=== PATIENT | female | born 1990 | race African-American/Black ===

== ENCOUNTER 2017-07-12 16:06 | Emergency (ER) | payer MEDICAID ==
[~2017-07-12] VITALS: Ht 167.6 cm; Wt 72.7 kg
[2017-07-12 16:07] VITALS: BP 118/79; PULSE 80; RESP 18; TEMP 98.6; O2SAT 100
[2017-07-12 16:53] LABS: AUTOMATED NEUTROPHIL # 2.6 TH/MM3 (1.8-7.7); BASOPHIL % 0.8 % (0.0-2.0); EOSINOPHIL # 0.1 TH/MM3 (0-0.4); EOSINOPHIL % 1.6 % (0.0-4.0); HEMATOCRIT 32.6 % (35.0-46.0); HEMO FLAGS DIFF FINAL; LYMPH % 31.1 % (9.0-44.0); LYMPHOCYTE # 1.4 TH/MM3 (1.0-4.8); MEAN CELL VOLUME 72.1 FL (80.0-100.0); MEAN CORPUSCULAR HEMOGLOBIN 23.4 PG (27.0-34.0); MEAN CORPUSCULAR HGB CONC 32.4 % (32.0-36.0); MONO % 7.2 % (0.0-8.0); NEUT % 59.3 % (16.0-70.0); PLATELET COUNT 298 TH/MM3 (150-450); RED BLOOD COUNT 4.52 MIL/MM3 (4.00-5.30); RED CELL DISTRIBUTION WIDTH 14.4 % (11.6-17.2); WHITE BLOOD COUNT 4.4 TH/MM3 (4.0-11.0)
[2017-07-12 17:24] LABS: ANION GAP 8 MEQ/L (5-15); BICARBONATE 25.2 MEQ/L (21.0-32.0); BLOOD UREA NITROGEN 3 MG/DL (7-18); CHLORIDE 102 MEQ/L (98-107); GLOMERULAR FILTRATION RATE 144 ML/MIN (>89); POTASSIUM 3.1 MEQ/L (3.5-5.1); SODIUM (NA) 135 MEQ/L (136-145)
[2017-07-12 17:27] LABS: ALCOHOL LESS THAN 3 MG/DL (0-5)
--- NOTE | 2017-07-12 17:36 | PD ---
HPI Chief Complaint: Medical Clearance Time Seen by Provider: 17:29 Travel History International Travel<30 days: No Contact w/Intl Traveler<30days: No Traveled to known affect area: No History of Present Illness HPI Patient is a 27-year-old female who presents to emergency room for medical clearance for [facility]. Patient reports that she is about 6 months , reports that she has no care. Patient reports no abdominal pain, denies any vaginal discharge or bleeding. She reports that she is addicted to drugs, specifically marijuana, alcohol and cocaine. Patient reports that she smokes cocaine - does not use it IV drugs. Patient reports no medical complaints at this time. Patient reports that she last used drugs yesterday, patient only here for medical clearance as she requests detox from [facility] from drugs. Patient denies any chest pain or shortness of breath, no other complaints. PFSH Past Medical History Medical History: Denies Significant Hx ?: LMP: 01/2017 Past Surgical History Surgical History: No Previous Surgery Social History Alcohol Use: Yes (1+ BEER/DAY) Tobacco Use: Yes (PPD) Substance Use: Yes (MARIJUANA) Allergies-Medications (Allergen,Severity, Reaction): Coded Allergies: No Known Allergies (Unverified , 07/12/17) Reported Meds & Prescriptions Reported Meds & Active Scripts Active No Active Prescriptions or Reported Medications Review of Systems General / Constitutional: No: Fever Eyes: No: Visual changes HENT: No: Headaches Cardiovascular: No: Chest Pain or Discomfort Respiratory: No: Shortness of Breath Gastrointestinal: No: Abdominal Pain Genitourinary: No: Dysuria Musculoskeletal: No: Pain Skin: No Rash Neurologic: No: Weakness Psychiatric: Positive: Substance Abuse (marijuana, cocaine, alcohol), No: Depression, Suicidal Ideations, Homicidal Ideation Endocrine: No: Polydipsia Hematologic/Lymphatic: No: Easy Bruising Physical Exam Narrative GENERAL: No acute distress, nontoxic SKIN: Focused skin assessment warm/dry. HEAD: Atraumatic. Normocephalic. EYES: Pupils equal and round. No scleral icterus. No injection or drainage. ENT: No nasal bleeding or discharge. Mucous membranes pink and moist. NECK: Trachea midline. No JVD. CARDIOVASCULAR: Regular rate and rhythm. No murmur appreciated. RESPIRATORY: No accessory muscle use. Clear to auscultation. Breath sounds equal bilaterally. GASTROINTESTINAL: Abdomen soft, non-tender, nondistended. Hepatic and splenic margins not palpable. MUSCULOSKELETAL: No obvious deformities. No clubbing. No cyanosis. No edema. NEUROLOGICAL: Awake and alert. No obvious cranial nerve deficits. Motor grossly within normal limits. Normal speech. PSYCHIATRIC: Appropriate mood and affect; insight and judgment normal. Data Data Last Documented VS Vital Signs Date Time Temp Pulse Resp B/P (MAP) Pulse Ox O2 Delivery O2 Flow Rate FiO2 07/12/17 16:07 98.6 80 18 118/79 (92) 100 Room Air Orders Orders Complete Blood Count With Diff (07/12/17 16:19) Basic Metabolic Panel (Bmp) (07/12/17 16:19) Urinalysis - C+S If Indicated (07/12/17 16:19) Beta Hcg (Quant/Titer) (07/12/17 16:19) Drug Screen, Random Urine (07/12/17 16:19) Alcohol (Ethanol) (07/12/17 16:19) Ed Poc Ultrasound (07/12/17 ) Potassium Chloride (Kcl) (07/12/17 18:00) Labs Laboratory Tests Test 07/12/17 16:30 07/12/17 17:48 White Blood Count 4.4 TH/MM3 Red Blood Count 4.52 MIL/MM3 Hemoglobin 10.6 GM/DL Hematocrit 32.6 % Mean Corpuscular Volume 72.1 FL Mean Corpuscular Hemoglobin 23.4 PG Mean Corpuscular Hemoglobin Concent 32.4 % Red Cell Distribution Width 14.4 % Platelet Count 298 TH/MM3 Mean Platelet Volume 7.9 FL Neutrophils (%) (Auto) 59.3 % Lymphocytes (%) (Auto) 31.1 % Monocytes (%) (Auto) 7.2 % Eosinophils (%) (Auto) 1.6 % Basophils (%) (Auto) 0.8 % Neutrophils # (Auto) 2.6 TH/MM3 Lymphocytes # (Auto) 1.4 TH/MM3 Monocytes # (Auto) 0.3 TH/MM3 Eosinophils # (Auto) 0.1 TH/MM3 Basophils # (Auto) 0.0 TH/MM3 CBC Comment DIFF FINAL Differential Comment Blood Urea Nitrogen 3 MG/DL Creatinine 0.52 MG/DL Random Glucose 79 MG/DL Calcium Level 8.6 MG/DL Sodium Level 135 MEQ/L Potassium Level 3.1 MEQ/L Chloride Level 102 MEQ/L Carbon Dioxide Level 25.2 MEQ/L Anion Gap 8 MEQ/L Estimat Glomerular Filtration Rate 144 ML/MIN Human Chorionic Gonadotropin, Quant 9293 MIU/ML Ethyl Alcohol Level LESS THAN 3 MG/DL Urine Color YELLOW Urine Turbidity HAZY Urine pH 6.5 Urine Specific [place] 1.024 Urine Protein 30 mg/dL Urine Glucose (UA) NEG mg/dL Urine Ketones 10 mg/dL Urine Occult Blood NEG Urine Nitrite NEG Urine Bilirubin NEG Urine Urobilinogen 2.0 MG/DL Urine Leukocyte Esterase NEG Urine WBC 3 /hpf Urine Squamous Epithelial Cells 15 /hpf Urine Mucus MANY /lpf Microscopic Urinalysis Comment CULT NOT INDICATED MDM Medical Decision Making Medical Screen Exam Complete: Yes Emergency Medical Condition: Yes Medical Record Reviewed: Yes Interpretation(s) Vital Signs Date Time Temp Pulse Resp B/P (MAP) Pulse Ox O2 Delivery O2 Flow Rate FiO2 07/12/17 16:07 98.6 80 18 118/79 (92) 100 Room Air Differential Diagnosis Medical clearance, drug abuse Narrative Course Patient with no complaint at this time. Here for medical clearance for detox at [facility]. Patient with appropriate heart tones, heart tones at 130 bpm this time. Labs ordered, once resulted, will medically cleared patient for [facility] detox Laboratory Tests Test 07/12/17 16:30 White Blood Count 4.4 TH/MM3 (4.0-11.0) Red Blood Count 4.52 MIL/MM3 (4.00-5.30) Hemoglobin 10.6 GM/DL (11.6-15.3) Hematocrit 32.6 % (35.0-46.0) Mean Corpuscular Volume 72.1 FL (80.0-100.0) Mean Corpuscular Hemoglobin 23.4 PG (27.0-34.0) Mean Corpuscular Hemoglobin Concent 32.4 % (32.0-36.0) Red Cell Distribution Width 14.4 % (11.6-17.2) Platelet Count 298 TH/MM3 (150-450) Mean Platelet Volume 7.9 FL (7.0-11.0) Neutrophils (%) (Auto) 59.3 % (16.0-70.0) Lymphocytes (%) (Auto) 31.1 % (9.0-44.0) Monocytes (%) (Auto) 7.2 % (0.0-8.0) Eosinophils (%) (Auto) 1.6 % (0.0-4.0) Basophils (%) (Auto) 0.8 % (0.0-2.0) Neutrophils # (Auto) 2.6 TH/MM3 (1.8-7.7) Lymphocytes # (Auto) 1.4 TH/MM3 (1.0-4.8) Monocytes # (Auto) 0.3 TH/MM3 (0-0.9) Eosinophils # (Auto) 0.1 TH/MM3 (0-0.4) Basophils # (Auto) 0.0 TH/MM3 (0-0.2) CBC Comment DIFF FINAL Differential Comment Blood Urea Nitrogen 3 MG/DL (7-18) Creatinine 0.52 MG/DL (0.50-1.00) Random Glucose 79 MG/DL (74-106) Calcium Level 8.6 MG/DL (8.5-10.1) Sodium Level 135 MEQ/L (136-145) Potassium Level 3.1 MEQ/L (3.5-5.1) Chloride Level 102 MEQ/L (98-107) Carbon Dioxide Level 25.2 MEQ/L (21.0-32.0) Anion Gap 8 MEQ/L (5-15) Estimat Glomerular Filtration Rate 144 ML/MIN (>89) Human Chorionic Gonadotropin, Quant 9293 MIU/ML (0-5) Ethyl Alcohol Level LESS THAN 3 MG/DL (0-5) All labs and all studies reviewed, patient with no complaint at this time. Patient will follow-up with her primary care doctor, as well as her OB, she will go directly to [facility] at this time. She will return to ER as needed. Diagnosis Primary Impression: Medical clearance for psychiatric admission Additional Impressions: Drug abuse Anemia Qualified Codes: D64.9 - Anemia, unspecified Hypokalemia Referrals: [facility] Patient Instructions: General Instructions Additional Instructions: Please go directly to the [facility] Please stop using drugs Please follow up with an [employer] for your care Return to ER as needed Please follow up with your primary care doctor Scripts No Active Prescriptions or Reported Meds Disposition: 01 DISCHARGE HOME Condition: Stable Trisha Acuña DO Jul 12, 2017 17:36
[2017-07-12 17:41] LABS: BETA HCG QUANT 9293 MIU/ML (0-5)
[2017-07-12 18:00] VITALS: BP 118/64; PULSE 82; RESP 16; O2SAT 98
[2017-07-12] MEDS ORDERED: POTASSIUM CHLORIDE 10 MEQ CONTROLLED RELEASE TAB PO ONE (18:00)
[2017-07-12 18:21] LABS: BLOOD, URINE NEG (NEG); COMMENT (UR) CULT NOT INDICATED; CULTURE IF INDICATED CULT NOT INDICATED; GLUCOSE,URINE NEG (NEG); KETONE, URINE 10 mg/dL (NEG); MUCUS URINE MANY /lpf (OCC); NITRITE,URINE NEG (NEG); PH, URINE 6.5 (5.0-8.5); SQUAMOUS EPITHELIAL CELL URINE 15 /hpf (0-5); URINE COLOR YELLOW (YELLW/STRAW)
== END 2017-07-12 19:00 | disposition home or self-care (01) ==
LOC: NEPE 16:06
DX: F14.10 Cocaine abuse, uncomplicated (principal); F12.90 Cannabis use, unspecified, uncomplicated; D64.9 Anemia, unspecified; E87.6 Hypokalemia; F17.200 Nicotine dependence, unspecified, uncomplicated
CPT/HCPCS: 80048; 80307; 81001; 84702; 85025; 99284

== ENCOUNTER 2017-10-25 22:31 | Emergency (ER) | payer MEDICAID, OTHER ==
--- NOTE | 2017-10-25 23:21 | PD ---
HPI Chief Complaint Contractions Travel History International Travel<30 Days: No Contact w/Intl Traveler<30Days: No Known Affected Area: No History of Present Illness HPI 27-year-old , IUP at 37.2 care complicated by lapse in care, insufficient care history of cocaine and marijuana use Patient presents complaining of constant contractions that started at 9 PM. There were no aggravating or alleviating factors and there are no attempted treatments. She reports that these were "nonstop"contractions. She reports that they stopped upon arrival here. She reports good movement. She denies any leaking of fluid or vaginal bleeding. She denies any painful contractions or cramping at this time. Weeks Gestation: 37 Para: 2 : 3 Miscarriage: 0 : 0 History Past Medical History Medical History: Denies Significant Hx Obstetric History Obstetric History Full-term 1 delivery at 32 weeks 1 Past Surgical History Surgical History: No Previous Surgery Family History Narrative Family History DM Social History Alcohol Use: No Tobacco Use: No Substance Abuse: Yes Allergies-Medications (Allergen,Severity, Reaction): Coded Allergies: No Known Allergies (Unverified , 07/12/17) Home Meds No Active Prescriptions or Reported Meds Review of Systems Except as stated in HPI: all other systems reviewed are Neg Physical Exam Narrative GENERAL: Well-nourished, well-developed patient. SKIN: Warm and dry. HEAD: Normocephalic and atraumatic. EYES: No scleral icterus. No injection or drainage. ENT: No nasal drainage noted. Mucous membranes pink. Airway patent. NECK: Supple, trachea midline. No JVD. CARDIOVASCULAR: Regular rate and rhythm without murmurs, gallops, or rubs. RESPIRATORY: Breath sounds equal bilaterally. No accessory muscle use. BREASTS: Deferred ABDOMEN/GI: Abdomen soft, non-tender, bowel sounds present, no rebound, no guarding Gravid GENITOURINARY: External Genitalia: intact and normal in appearance. Normal BUS. No cervical or vaginal masses noted. Grossly normal rugae. Physiologic discharge. SVE 3/30/-3, posterior. GBS culture was obtained FHT's: heart tones are in the 130s with moderate long-term variability, good accelerations, no decelerations noted. This is a reactive NST and category 1 heart rate tracing. EXTREMITIES: No cyanosis or edema. BACK: Nontender without obvious deformity. NEUROLOGICAL/musculoskeletal: Awake and alert. Motor and sensory grossly within normal limits. Grossly normal Five out of 5 muscle strength in all muscle groups. Normal speech. Normal range of motion, gait Psychiatric: Grossly normal memory and affect MDM Narrative Course / MDM 27-year-old 1. IUP at 37.2 2. Contractions at term: No evidence of labor at this time with no evidence of contractions at this time. Strict labor precautions 3. Lapse in care: Information given to establish care in the area 4. GBS obtained 5. UDS sent 6. well-being: Reassuring testing with reactive NST and category 1 heart rate tracing. The heart rate is reassuring and appropriate for gestational age. kick counts daily 7. Follow up with OB in 2-3 days or sooner if needed 8. History of marijuana and cocaine use: As above UDS sent Scripts No Active Prescriptions or Reported Meds Jazmin Maradiaga MD Oct 25, 2017 23:21
--- NOTE | 2017-10-26 00:17 | PD ---
HPI Chief Complaint Please see other note, note created for discharge orders, but unable to remove sections. Travel History International Travel<30 Days: No Contact w/Intl Traveler<30Days: No Known Affected Area: No Allergies-Medications (Allergen,Severity, Reaction): Coded Allergies: No Known Allergies (Unverified , 07/12/17) Home Meds No Active Prescriptions or Reported Meds Data Data Orders Orders Vital Signs (Adult) .ON ADMISSION (10/25/17 23:26) ^ Labor Status (10/25/17 23:26) ^ Non Stress Test (10/25/17 23:26) Group B Beta Strep Scrn (Gbs) (10/25/17 23:27) Ob/Psych Drug Screen, Urine (10/25/17 23:29) Labs Laboratory Tests Test 10/25/17 22:40 Urine Opiates Screen NEG Urine Barbiturates Screen NEG Urine Amphetamines Screen NEG Urine Benzodiazepines Screen NEG Urine Cocaine Screen NEG Urine Cannabinoids Screen NEG Date/Time Source Procedure Growth Status 10/25/17 23:20 Genital Vaginal Group B Streptococcus Screen Pending Received MDM Diagnosis Diagnosis: Primary Impression: 37 weeks gestation of Additional Impression: False labor before 37 completed weeks of gestation during in third trimester, antepartum Disposition: 01 DISCHARGE HOME Condition: Good Scripts No Active Prescriptions or Reported Meds Patient Instructions: General Instructions, Having Your Baby: The Labor Process (GEN), Movement (ED) Additional Instructions: COME BACK IF CONTRACTIONS 3-5 MIN. APART, LASTING A MINUTE, NOT ABLE TO WALK OR TALK THROUGH THEM. ALSO OF FLUID LEAKAGE, BLEEDING OR SIGNIFICANT DECREASE IN BABY MOVEMENT Departure Forms: Tests/Procedures Jazmin Maradiaga MD Oct 26, 2017 00:17
== END 2017-10-25 23:30 | disposition home or self-care (01) ==
LOC: HOBED 22:31
DX: O47.1 False labor at or after 37 completed weeks of gestation (principal); O99.323 Drug use complicating pregnancy, third trimester; F12.90 Cannabis use, unspecified, uncomplicated; F14.90 Cocaine use, unspecified, uncomplicated; Z3A.37 37 weeks gestation of pregnancy
CPT/HCPCS: 59025; 80307; 87081; 99283; G0481

== ENCOUNTER 2017-11-14 15:27 | Emergency (ER) | payer OTHER ==
[~2017-11-14] VITALS: Ht 167.6 cm; Wt 79.5 kg
[2017-11-14 15:38] VITALS: BP 146/65; PULSE 72; RESP 18; TEMP 98.9; O2SAT 100
--- NOTE | 2017-11-14 21:32 | PD ---
Physical Exam Date Seen by Provider: Nov 14, 2017 Time Seen by Provider: 20:15 Narrative 27 year old female presents to the emergency department for evaluation of midsternal chest pain for 2 days, palpitations for 2 weeks. She reports bilateral thigh pain as well. She states she is 40 weeks, 1 day . Current pain is 7/10. Moderate severity. Data Data Last Documented VS Vital Signs Date Time Temp Pulse Resp B/P (MAP) Pulse Ox O2 Delivery O2 Flow Rate FiO2 11/14/17 15:38 98.9 72 18 146/65 (92) 100 Orders Orders Electrocardiogram (11/14/17 15:40) Basic Metabolic Panel (Bmp) (11/14/17 15:40) Ckmb (Isoenzyme) Profile (11/14/17 15:40) Complete Blood Count With Diff (11/14/17 15:40) Magnesium (Mg) (11/14/17 15:40) Prothrombin Time / Inr (Pt) (11/14/17 15:40) Act Partial Throm Time (Ptt) (11/14/17 15:40) Troponin I (11/14/17 15:40) MDM Supervised Visit with GUNNER: No Narrative Course 27 year old female presents to the emergency department for evaluation of chest pain and palpitations. Patient is initially seen in triage. Work up is initiated. Patient left AMA before she could be moved to a medical bed. Diagnosis Primary Impression: Left against medical advice Scripts No Active Prescriptions or Reported Meds Disposition: 07 AGAINST MEDICAL ADVICE Lucy Lai Nov 14, 2017 21:32
== END 2017-11-14 23:51 | disposition left against medical advice (07) ==
LOC: NETRI 15:27
DX: O26.893 Other specified pregnancy related conditions, third trimester (principal); R07.9 Chest pain, unspecified; Z3A.40 40 weeks gestation of pregnancy
CPT/HCPCS: 99281

== ENCOUNTER 2017-11-15 01:44 | Emergency (ER) | payer OTHER ==
--- NOTE | 2017-11-15 02:10 | PD ---
HPI Chief Complaint Contraction pain Date Seen: Nov 15, 2017 Time Seen: 02:08 Travel History International Travel<30 Days: No Contact w/Intl Traveler<30Days: No Known Affected Area: No History of Present Illness HPI Patient is 27-year-old white female at 40 weeks gestation unregistered to our system she complains of contraction activity. Denies bleeding or leakage of fluid. Baby is active, heart rate tracing reactive and spaced out irregular contractions seen Weeks Gestation: 40 Para: 2 : 3 History Obstetric History Obstetric History 2 vaginal deliveries Social History Alcohol Use: No Tobacco Use: No Substance Abuse: No Allergies-Medications (Allergen,Severity, Reaction): Coded Allergies: No Known Allergies (Unverified , 07/12/17) Home Meds No Active Prescriptions or Reported Meds Review of Systems General / Constitutional: No: Fever, Weight Gain, Chills, Other Eyes: No: Diploplia, Blurred Vision, Visual changes, Pain, Photophobia HENT: No: Headaches, Vertigo, Lightheadedness Cardiovascular: No: Irregular Rhythm, Chest Pain or Discomfort, Palpitations, Tachycardia, Syncope, Varicosities, Edema, Cyanosis Respiratory: No: Cough, Short of Breath, Other Gastrointestinal: Abdominal Pain, No: Nausea, Vomiting, Diarrhea Genitourinary: No: Decreased Urinary Output, Oliguria Musculoskeletal: No: Limited ROM, Weakness, Cramping, Edema, Pain Skin: No Rash, No Itching, No Dryness, No Lumps, No Change in Pigmentation, No Change in Nails, No Alopecia, No Lesions Neurologic: No: Weakness, Dizziness, Syncope, Focal Abnormalities, Coordination Problem, Headache, Slurred Speech, Seizures Psychiatric: No: Depression, Suicidal Ideations, Homicidal Ideation Endocrine: No: Heat Intolerance, Cold Intolerance, Polydipsia, Polyuria, Other Physical Exam Narrative GENERAL: Well-nourished, well-developed patient. SKIN: Warm and dry. HEAD: Normocephalic and atraumatic. EYES: No scleral icterus. No injection or drainage. ENT: No nasal drainage noted. Mucous membranes pink. Airway patent. NECK: Supple, trachea midline. No JVD. CARDIOVASCULAR: Regular rate and rhythm without murmurs, gallops, or rubs. RESPIRATORY: Breath sounds equal bilaterally. No accessory muscle use. BREASTS: Bilateral exam showed no masses , no retractions, no nipple discharge. ABDOMEN/GI: Abdomen soft, non-tender, bowel sounds present, no rebound, no guarding Gravid to [-40] weeks size Fundal Height: [-40] GENITOURINARY: External Genitalia: intact and normal in appearance BUS glands: [-] Cervix: [-post] Dilatation: [4-] Effacement: [60-] Station: [0] Presentation: [vtx-] Membranes: [intact ] Uterine Contractions: [-occasional] FHT's: Category: [1-] Baseline: [133-] Reactive: [R-] Variability: [mod-] Decels: [none-] EXTREMITIES: No cyanosis or edema. BACK: Nontender without obvious deformity. No CVA tenderness. NEUROLOGICAL: Awake and alert. Motor and sensory grossly within normal limits. Five out of 5 muscle strength in all muscle groups. Normal speech. MDM Interpretation(s) 27-year-old black female at 40 weeks presents with contraction pain. On the monitor only an occasional contractions seen, heart rate tracing reactive, cervix 3 to 4/60/0 station with the presenting part of the vertex quite low in the pelvis Plan Plan to discharge home to observation return for contractions are every 4-5 minutes apart for at least an hour, or bleeding or leakage of fluid noted Diagnosis Diagnosis: Primary Impression: False labor after 37 weeks of gestation without delivery Additional Impression: 40 weeks gestation of Disposition: 01 DISCHARGE HOME Condition: Stable Scripts No Active Prescriptions or Reported Meds Neftaly Laws II, MD Nov 15, 2017 02:10
== END 2017-11-15 02:41 | disposition home or self-care (01) ==
LOC: HOBED 01:44
DX: O47.1 False labor at or after 37 completed weeks of gestation (principal); Z3A.40 40 weeks gestation of pregnancy
CPT/HCPCS: 59025